=== PATIENT | male | born 1995 | race Caucasian/White ===

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

== ENCOUNTER 2017-01-11 06:18 | Day surgery (SDC) | payer OTHER ==
--- NOTE | 2017-01-10 19:28 | HISTORY AND PHYSICAL ---
ADMITTED: 01/11/2017 HISTORY OF PRESENT ILLNESS: The patient is a 22-year-old young man with a chief complaint of a painful right ankle. States he had previous surgery by a public safety telecommunicator in the [facility] in 07/2013. States that was doing well for quite some time; however, the ankle continues to give out and it is painful. States he went back to primary care provider who then referred him to [facility] and was seen by Dr. Cheek, who then referred him to our office. MEDICAL/SURGICAL HISTORY: Past medical history: Includes history of asthma, anxiety and depression. Past surgical history: He had a broken arm and had osteochondroma removed in the left arm, as well as in his right ankle. PRIMARY CARE PHYSICIAN: Rohit Monreal MD MEDICATIONS: 1. Currently on no medications. ALLERGIES: 1. REPORTS NO KNOWN DRUG OR FOOD ALLERGIES. SOCIAL HISTORY: Does not smoke, does not drink. 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 FAMILY HISTORY: Noncontributory to chief complaint. REVIEW OF SYSTEMS: Ten-point review of systems positive for some joint pain and lower extremity swelling. PHYSICAL EXAMINATION: GENERAL: The patient is alert, oriented x3. HEENT: PERRLA. Normocephalic. HEART: Regular rate and rhythm. Regular S1 and S2. LUNGS: Respirations clear to auscultation. No wheezing, rhonchi, or rales. ABDOMEN: Soft, tender, nondistended. No palpable masses. EXTREMITIES: Lower extremity/Vascular: DP and PT pulses are palpable. Subpapillary venous plexus capillary refill within normal limits. NEUROLOGIC: Deep tendon reflexes, epicritic sensations are intact. There is a linear incision along just inferior to the lateral malleolus of right foot. There is a palpable mass just anterior and distal to the distal fibular tip. Positive anterior drawer sign and tenderness along the anterior talar calcaneal fibular ligaments. LAB/IMAGING: Imaging: MRI at [facility] on 11/04/2016, read by Dr. Fermin, revealed a 10 mm nodule in the distal fibula, a possible partial tear of the distal peroneal tendon, as well as an osteochondral defect in the talus. IMPRESSION: 1. Ankle instability. 2. Tear of the peroneal brevis tendon. 3. Osteochondral defect. PLAN: The patient is scheduled for an ankle arthroscopy with debridement. In addition, we will remove the nodule and repair of the peroneal tendon, as well as carry out a lateral ankle stabilization. There are no contraindications to surgery. Surgery is scheduled on outpatient basis at [facility] on 01/11/2017.
[~2017-01-11] VITALS: Ht 167.6 cm; Wt 78.0 kg
[2017-01-11] MEDS ORDERED: PERCOCET1 TA4 PO (10:03)
--- NOTE | 2017-01-11 10:03 | Provider's Discharge Care Plan ---
Problem, Goal, Plan Problem List 1. Sprain of other ligament of right ankle, sequela Goals: Improve function Instructions: Follow up as directed
--- NOTE | 2017-01-11 10:03 | Provider's Discharge Care Plan ---
Problem, Goal, Plan Problem List 1. Sprain of other ligament of right ankle, sequela Goals: Improve function Instructions: Follow up as directed
[2017-01-11] MEDS ORDERED: ZOFRAN4 MG PO (10:04)
[2017-01-11 12:01] VITALS: BP 111/56
--- NOTE | 2017-01-11 12:01 | OPERATIVE REPORT ---
DATE OF SURGERY: 01/11/2017 SURGEON: Arnold Rojas DPM PREOPERATIVE DIAGNOSES: 1. Ankle instability, right 2. Soft tissue mass, right ankle 3. Partial tear of the peroneal brevis tendon, right POSTOPERATIVE DIAGNOSES: 1. Ankle instability, right 2. Soft tissue mass, right ankle 3. Partial tear of the peroneal brevis tendon, right PROCEDURES PERFORMED: 1. Ankle arthroscopy with debridement 2. Lateral ankle stabilization via Arthrex internal brace. 3. Removal of soft tissue mass. 4. Repair of peroneal brevis tendon ANESTHESIA: General. HEMOSTASIS: Achieved by mid thigh tourniquet inflated to 275 mmHg pressure. TOURNIQUET TIME: Total tourniquet time 97 minutes. MATERIALS: Used 3-0 and 4-0 Polysorb, 3-0 Supramid, 4-0 Surgipro. One Arthrex internal brace kit with #2 FiberTape. INJECTABLES: Injected 20 mL of 0.5% bupivacaine plain. COMPLICATIONS: None. CONDITION: The patient tolerated anesthesia and procedure well. INDICATIONS: The patient is a pleasant 22-year-old male who had previously undergone a removal of a soft tissue mass on his right ankle; however, he developed continuing issues and instability. MRI taken at [facility] revealed a soft tissue mass in the lateral right ankle and osteochondral lesion in the right ankle. The patient has opted to proceed with surgical intervention consisting of a stabilization arthroscopy, peroneal tendon repair with removal of soft tissue mass. There are no contraindications to surgery at this time. SURGICAL TECHNIQUE: The patient was brought to the operating room and placed on the table in the supine position. A general anesthetic was administered. A pneumatic tourniquet was then placed above the right knee. The right lower extremity was prepped and draped in normal sterile fashion. An intraoperative pause was carried out for positive identification, proper limb, and consent form verified and confirmed. Esmarch bandage was then utilized to exsanguinate the limb, the tourniquet was then inflated. Attention was then directed to procedure #1. PROCEDURE 1: ANKLE ARTHROSCOPY WITH DEBRIDEMENT: At this time, the leg was placed in an Arthrex ankle distractor and the joint was distracted. An 18-gauge needle was then used on the anteromedial aspect of the ankle to identify the medial portal. A #11 blade was then utilized to incise the skin, portal dissection was carried out. The joint was further distracted. At this time, the camera was then placed. Upon entry into the anterior medial aspect, noted to encounter hemorrhagic synovitis. The camera was advanced more posteriorly and the questionable subtalar osteochondral lesion was noted on the anterior aspect of the talar head more medial in the central aspect of the talar head. A corresponding linear incision was made overlying the anterior aspect of the lateral gutter. It was then dissected via portal dissection. Small joint shaver was then placed into the lateral gutter and the hemorrhagic synovium was reduced. The anterior talofibular ligament with portions of it within the fragments within the joint. However, the remaining portion of the ligament was intact. The osteochondral defect was shaved down to a nice contoured surface. Approximately 3000 liters of lactated Ringer's were placed through the joint. The camera and the small joint shaver were then transpositioned allowing access to the more posterior medial and anterior hemorrhagic synovium was then debrided with the shaver. The camera and shaver were removed. Portals were reapproximated with 4-0 Surgipro. Attention was then directed to procedure #2. PROCEDURE #2: LATERAL ANKLE STABILIZATION: At this time, a curvilinear incision was made on the midline of the fibula extending distally and anterior and inferior to the fibula. It was deepened by sharp and blunt dissection. Superficial vessels were ligated as they were encountered. A periosteal elevator was used to incise the fibula. The periosteum was reflected. A guidewire was then driven obliquely from distal to proximal and towards the lateral gutter verified under fluoroscopy for proper placement. It was drilled with a 2.7 drill, tapped accordingly, and then FiberTape was inserted via SwiveLock. Dissection was then carried more anteriorly and medially with the placement of bent Homans' coursing along the anterior aspect, the retinaculum was then incised, allowing access to the capsule. The capsule was incised following the course of the anterior talofibular ligament towards the neck of the talus. A corresponding guidewire was then driven obliquely just inferior to the body of the talus and proximal to the neck oriented at 45 degrees from anterior to posterior towards the medial malleolus. Verified under fluoro for proper placement, a 2.7 drill was then utilized then overdrilled with 3.4 drill and then tapped. Additional SwiveLock and the FiberTape was then loaded, foot held in a neutral position, the FiberTape was then placed superimposed on the superior aspect of the anterior talofibular ligament. Stable. The foot was placed through a range of motion and there was excellent range with good stability obtained and achieved in multiple planes. The area was flushed. Capsule and periosteum reapproximated with 3-0 Polysorb, subcutaneous with 4-0. Attention was then directed to procedure #3, removal of the soft tissue mass. Dissection was then carried just inferior to the distal tibia and superior to the peroneal tendons. The sheath was incised. The soft tissue mass was then seen in the midsection of the peroneal brevis and at the intersection between that and the peroneal longus tendon. It was identified and removed in toto. The area was flushed. Attention was then directed to procedure #4 repair of peroneal brevis tendon. At this time, with the tendon sheath incised, the linear split of the peroneal brevis tendon was identified as it was coursing distally toward its insertion. A 3-0 Supramid was then utilized to tubularize the tendon and repair it from distal to proximal. The area was flushed. The sheath was then reapproximated with 3-0 Polysorb, subcutaneous with 4-0, and the final closure for the lateral procedures was carried out with 4-0 Surgipro in a running fashion. The area was then locally anesthetized with the aforementioned local anesthetic. The tourniquet was released at 97 minutes with good reactive hyperemia and good digital perfusion. A light compressive dressing was applied. The patient tolerated anesthesia and procedure well, left the room with vital signs stable. While in recovery, the patient received written explicit instructions for touchdown weightbearing with the aid of a fracture boot. Prognosis is guarded. I did send the specimen off for gross and micro analysis and will await pathology report.
== END 2017-01-11 12:44 | disposition home or self-care (01) ==
LOC: OR SRH 06:18 → SCU SRH 06:23 → OR SRH 07:30
PROVIDERS: Podiatrist
PROC: 0LBS0ZZ Excision of Right Ankle Tendon, Open Approach (ICD-10-PCS; principal; 2017-01-11 07:30)
PROC: 0MUQ0JZ Supplement Right Ankle Bursa and Ligament with Synthetic Substitute, Open Approach (ICD-10-PCS; principal; 2017-01-11 07:30)
PROC: 0LQS0ZZ Repair Right Ankle Tendon, Open Approach (ICD-10-PCS; principal; 2017-01-11 07:30)
PROC: 0SBF4ZZ Excision of Right Ankle Joint, Percutaneous Endoscopic Approach (ICD-10-PCS; principal; 2017-01-11 07:30)
DX: M25.371 Other instability, right ankle (principal); S96.811A Strain of other specified muscles and tendons at ankle and foot level, right foot, initial encounter; M93.871 Other specified osteochondropathies, right ankle and foot; D21.21 Benign neoplasm of connective and other soft tissue of right lower limb, including hip; M65.871 Other synovitis and tenosynovitis, right ankle and foot; J45.909 Unspecified asthma, uncomplicated
CPT/HCPCS: 29229; 29240; 50002; 60001; 70002; 80102; 80144; 80212; 80360; 83419; 83612; 83860; 84038; 84522; 90074; 90100; 95059